=== PATIENT | female | born 1945 | race Caucasian/White ===

== ENCOUNTER 2017-04-03 12:02 | Emergency (ER) | payer OTHER ==
[~2017-04-03] VITALS: Ht 157.5 cm; Wt 83.9 kg
[~2017-04-03 12:02] MED LIST: COZAAR100 MG; VERAPAMIL ER120 MG
== END 2017-04-03 22:46 | disposition home or self-care (01) ==
LOC: ER 12:02
DX: J45.998 Other asthma (principal); K52.9 Noninfective gastroenteritis and colitis, unspecified; J22 Unspecified acute lower respiratory infection; J11.1 Influenza due to unidentified influenza virus with other respiratory manifestations